=== PATIENT | male | born 1965 | race Caucasian/White ===

== ENCOUNTER → 2017-08-04 | Outpatient (CLI) | payer BC ==
--- NOTE | 2017-08-04 09:53 | CT ---
EXAMINATION TYPE: CT brain wo con DATE OF EXAM: 08/04/2017 COMPARISON: Prior CT brain 02/19/2014 HISTORY: concussion, fall downstairs on Wednesday CT DLP: 1162 mGycm Automated exposure control for dose reduction was used. Helical acquisition through the brain. FINDINGS: Minimal mucosal disease present within the maxillary sinus. Postop changes are noted bilaterally with in the maxillary sinuses. There is no hemorrhage or hydrocephalus. Brain density is stable. Mild juan a ical atrophy is unchanged. Orbits are symmetric. Cerebral vascular calcifications are present. IMPRESSION: STABLE BRAIN CT. NO ACUTE BRAIN ABNORMALITY EVIDENT.
== END | disposition home or self-care (01) ==
LOC: RADCTMAIN 08:26
PROVIDERS: ATTEND Family Medicine
DX: S06.0X0A Concussion without loss of consciousness, initial encounter (principal)
CPT/HCPCS: 70450

== ENCOUNTER → 2020-08-09 | Outpatient (CLI) | payer BC ==
--- NOTE | 2020-08-09 14:22 | NM ---
EXAMINATION TYPE: NM bone scan whole body DATE OF EXAM: 08/09/2020 COMPARISON: Outside MRI lumbar spine July 17, 2020 HISTORY: Low back pain for 3 months per patient. Lumbar region radiculopathy, spondylosis, paresthesi a of scan, and spondylolisthesis all per order. Delayed whole-body scanning was performed following the injection of 23.8 mCi Tc 99m MDP. Images acq uired four hours post injection. Whole body images in anterior and posterior projection along with ad ditional projections of the thorax and abdomen are acquired. FINDINGS: No suspicious increased radiotracer uptake to suggest metastatic disease to the bone or oth er suspicious abnormality. No worrisome focal increased uptake in the lumbar spine. Mild uptake in bi lateral knee joints presumed degenerative change. Normal excretion is present. Mild focal uptake late ral left mid foot likely corresponds to patient's history of prior surgery at this level. IMPRESSION: As above.
== END | disposition home or self-care (01) ==
LOC: RADNMMAIN 10:35
PROVIDERS: ATTEND Physical Medicine & Rehabilitation
DX: R93.7 Abnormal findings on diagnostic imaging of other parts of musculoskeletal system (principal); M43.16 Spondylolisthesis, lumbar region; M47.817 Spondylosis without myelopathy or radiculopathy, lumbosacral region; M54.16 Radiculopathy, lumbar region; R20.2 Paresthesia of skin
CPT/HCPCS: 78306; A9503

== ENCOUNTER → 2020-09-05 | Outpatient (CLI) | payer BC ==
[2020-09-06 14:21] LABS: Albumin 3.93 g/dL (3.80-4.90)
== END | disposition home or self-care (01) ==
LOC: LABWHC1 14:45
PROVIDERS: ATTEND Physical Medicine & Rehabilitation
DX: M54.5 Low back pain (principal); M43.16 Spondylolisthesis, lumbar region; M47.27 Other spondylosis with radiculopathy, lumbosacral region; R20.2 Paresthesia of skin; R93.7 Abnormal findings on diagnostic imaging of other parts of musculoskeletal system
CPT/HCPCS: 36415; 84165; 86334; 86335

== ENCOUNTER → 2022-01-30 | Outpatient (CLI) | payer BC ==
--- NOTE | 2022-01-31 09:49 | MR ---
EXAMINATION TYPE: MR lumbar spine wo con DATE OF EXAM: 01/30/2022 COMPARISON: Prior outside MRI July 17, 2020. Outside report is not available for correlation. HISTORY: Low back pain and stiffness. TECHNIQUE: Multiplanar, multisequence imaging of the lumbar spine is performed without IV contrast. FINDINGS: Sagittal images of the lumbar spine show vertebral body heights and alignment to remain sta ble and satisfactory. Multilevel disc desiccation is redemonstrated. Stable mild disc space narrowin g L5-S1 level. Stable mild to moderate disc space narrowing and anterior spurring at L1-L2 level. The conus medullaris is normal in position and signal ending at mid L1 level. Marked heterogeneity of weston ne marrow signal intensity is redemonstrated similar to prior. Axial images at T12-L1 level remain within normal limits. Axial images at L1-L2 level redemonstrate mild facet arthropathy bilaterally. Axial images at L2-L3 and L3-L4 levels redemonstrate mild broad disc bulges but the spinal canal is p reserved. Axial images at L4-L5 level show mild facet arthropathy bilaterally. There is mild broad disc bulge. Spinal canal is preserved and the bilateral neural foramina are patent. Axial images at L5-S1 level show tiny central disc protrusion and mild facet arthropathy with spinal canal is preserved and bilateral neural foramina are patent. Increased epidural fat at this level is redemonstrated. Partial visualization of at least mildly distended bladder. Paraspinal muscle bulk is preserved. IMPRESSION: Marked heterogeneity of bone marrow redemonstrated. Correlate clinically. Suspect red mar row reconversion. Mild multilevel degenerative changes as detailed above without significant change f rom outside MRI images.
== END | disposition home or self-care (01) ==
LOC: RADMRIMAIN 15:13
PROVIDERS: ATTEND Family Medicine
DX: S33.9XXA Sprain of unspecified parts of lumbar spine and pelvis, initial encounter (principal); M48.061 Spinal stenosis, lumbar region without neurogenic claudication; X58.XXXA Exposure to other specified factors, initial encounter
CPT/HCPCS: 72148

== ENCOUNTER → 2022-04-02 | Outpatient (CLI) | payer BC | END | disposition home or self-care (01) | LOC: LABWHC1 10:17 | PROVIDERS: ATTEND Psychiatry & Neurology Neurology | DX: R25.1 Tremor, unspecified (principal); R41.3 Other amnesia | CPT/HCPCS: 36415; 82390; 82525; 82607; 82746 ==

== ENCOUNTER → 2022-04-11 | Outpatient (CLI) | payer BC ==
--- NOTE | 2022-04-12 04:34 | MR ---
EXAMINATION TYPE: MR brain wo con DATE OF EXAM: 04/11/2022 COMPARISON: 04/06/2013 HISTORY: CVA, memory loss, tremors, imbalance. Multiplanar multi echo imaging of the brain with no contrast. Diffusion images show no sign of an acute infarct. There is mild cerebral atrophy. There is no mass e ffect or midline shift. No sign of intracranial hemorrhage. There are a few scattered peripheral whit e matter high signal foci at the siddiqui-white matter junction of both cerebral hemispheres on the T2 an d FLAIR images. Total number is approximately 10 and these measure up to 4 mm. The brainstem is intac t. Corpus callosum is intact. Sella turcica appears normal. No evidence of posterior fossa mass. No e vidence of orbital mass. IMPRESSION: Multiple scattered peripheral white matter small high signal foci likely related to some microvascula r ischemia and mostly new compared to old exam. No evidence of cortical infarct. Mild atrophy.
== END | disposition home or self-care (01) ==
LOC: RADMRIMAIN 14:28
PROVIDERS: ATTEND Psychiatry & Neurology Neurology
DX: I63.9 Cerebral infarction, unspecified (principal); G46.3 Brain stem stroke syndrome
CPT/HCPCS: 70551

== ENCOUNTER → 2023-08-11 | Outpatient (CLI) | payer BC ==
--- NOTE | 2023-08-11 11:56 | CT ---
EXAMINATION TYPE: CT brain wo con CT DLP: 1074.3 mGycm, Automated exposure control for dose reduction was used. DATE OF EXAM: 08/11/2023 9:42 AM COMPARISON: 08/04/2017 CLINICAL INDICATION:Male, 58 years old with history of HEAD INJURY S09.90XA, head injury, head LAC, l oss of LOC TECHNIQUE: Brain: Axial CT images of the brain were obtained with coronal and sagittal reformats created and rev iewed. Contrast used: None. Oral contrast used: None. FINDINGS: Brain: Extra-axial spaces: No abnormal extra-axial fluid collections. Ventricular system: Within normal limits Cerebral parenchyma: No acute intraparenchymal hemorrhage or mass effect. The siddiqui-white junction is well differentiated. Cerebellum: Unremarkable. Mass effect: No evidence of midline shift. Intracranial vasculature: unremarkable Soft tissues: Normal. Calvarium/osseous structures: No depressed skull fracture. Paranasal sinuses and mastoid air cells: Mild scattered paranasal sinus disease. Visualized orbits: Orbital contents are intact. IMPRESSION: No acute intracranial process.
== END | disposition home or self-care (01) ==
LOC: RADCTMAIN 09:26
PROVIDERS: ATTEND Family Medicine
DX: S09.90XA Unspecified injury of head, initial encounter (principal)
CPT/HCPCS: 70450

== ENCOUNTER 2024-06-05 12:38 | Emergency (ER) | payer BC ==
[~2024-06-05 12:38] MED LIST: SODIUM CHLORIDE 0.9% 1,000 ML BAG ONE
== END 2024-06-05 14:00 ==
LOC: EC 12:38
DX: Z53.29 Procedure and treatment not carried out because of patient's decision for other reasons (principal)
CPT/HCPCS: 36415; 80053; 82150; 83036; 83690; 83735; 84100; 85025; 99499

== ENCOUNTER → 2025-03-07 | Outpatient (CLI) | payer OTHER ==
--- NOTE | 2025-03-07 09:39 | XR ---
EXAMINATION TYPE: XR cervical spine comp DATE OF EXAM: 03/07/2025 9:28 AM INDICATION: Patient age:Male; 59 years old; Reason for study: M54.2 CERVICALGIA; PHH, pain COMPARISON: None TECHNIQUE: The cervical spine was imaged in 4 projections. Frontal, lateral, odontoid and bilateral o blique. FINDINGS: The osseous structures show normal alignment without evidence of an acute fracture. There are osteoph ytes noted throughout the cervical spine on the anterior and lateral aspects of the vertebral bodies. Multilevel disc space narrowing. Multilevel facet arthropathy. Pedicles are intact. Soft tissues ar e within normal limits. The odontoid appears intact. IMPRESSION: 1. No fracture or dislocation. 2. Moderate degenerative disc disease changes of the cervical spine. [facility], , 03/07/2025 9:37 AM
== END | disposition home or self-care (01) ==
LOC: RADXRMAIN 09:09
PROVIDERS: ATTEND Emergency Medicine
DX: M50.30 Other cervical disc degeneration, unspecified cervical region (principal)
CPT/HCPCS: 72050